=== PATIENT | female | born 1960 | race Asian ===

== ENCOUNTER 2017-08-28 03:04 | Inpatient (IN) | payer OTHER, MEDICARE ==
[~2017-08-28] VITALS: Ht 160 cm; Wt 63.1 kg
[2017-08-28] VITALS (8 sets, daily range): BP systolic 122–188; BP diastolic 70–90
[2017-08-28 03:13] LABS: GLUCOSE COMMENT 1 Doctor Notified; GLUCOSE,POINT OF CARE 290 MG/DL (70-110)
[2017-08-28 03:25] LABS: HEMATOCRIT 32.1 % (36-46); MEAN CORPUSCULAR HEMOGLOBIN 28.4 pg (26.0-34.0); MEAN CORPUSCULAR HGB CONC 31.2 G/dL (31.0-37.0); MEAN CORPUSCULAR VOLUME 91 fL (80-100); PLATELET COUNT (AUTO) 131 K/uL (150-450); RED BLOOD CELL COUNT(AUTO) 3.53 MIL/uL (4.00-5.20); RED CELL DISTRIBUTION WIDTH 17.9 % (11.5-14.5); WHITE BLOOD COUNT (AUTO) 5.4 K/uL (4.5-11.0)
[2017-08-28 03:29] LABS: PROTHROMBIN TIME 21.4 SEC (9.4-11.6)
[2017-08-28 03:32] LABS: ANION GAP 16 mmol/L (8-16); CALCIUM, TOTAL 8.2 mg/dL (8.8-10.5); CARBON DIOXIDE 25 mmol/L (22-29); CHLORIDE 99 mmol/L (98-107); GLOMERULAR FILTR. RATE CALC 8 mL/min (>60); POTASSIUM 4.3 mmol/L (3.5-5.1); SODIUM SERUM 140 mmol/L (136-145); UREA NITROGEN, BLOOD 39 mg/dL (7-18)
[2017-08-28] MEDS: PROPOFOL 1000 MG/ISO-OSM 100 ML IV PRN ×4 (03:34→19:50)
[2017-08-28 03:38] LABS: ALANINE AMINOTRANSFERASE 16 U/L (12-78); ALBUMIN 2.5 g/dL (3.4-5.0); ASPARTATE AMINOTRANSFERASE 29 U/L (15-37); CREATINE KINASE, TOTAL 44 U/L (26-192); TOTAL PROTEIN, SERUM 6.9 g/dL (6.4-8.2)
[2017-08-28] MEDS ORDERED: ACETAMINOPHEN 325 MG TABLET PO PRN ×2 (03:45→08:00)
[2017-08-28] MEDS ORDERED: ONDANSETRON HCL 4 MG/2 ML VIAL IVP PRN (03:45)
[2017-08-28] MEDS ORDERED: 0.9% SODIUM CHLORIDE 10 ML SYRINGE IVP PRN (03:45)
[2017-08-28 03:55] LABS: EOSINOPHILS % (MANUAL) 1 % (1-6); LYMPHOCYTES % (MANUAL) 82 % (22-44); TOTAL CELLS COUNTED 100
[2017-08-28] MEDS ORDERED: NIFE60TA71 PO (03:59)
[2017-08-28] MEDS ORDERED: FURO80 PO (03:59)
[2017-08-28] MEDS ORDERED: FERR-89 PO (03:59)
[2017-08-28] MEDS ORDERED: CLON1PAT13 TD (03:59)
[2017-08-28] MEDS ORDERED: ACET1TAB12 PO (03:59)
[2017-08-28] MEDS ORDERED: WARF5 PO (03:59)
[2017-08-28] MEDS ORDERED: SEVEC800 PO (03:59)
[2017-08-28] MEDS ORDERED: ERGO500014 PO (03:59)
[2017-08-28] MEDS ORDERED: CINA30 PO (03:59)
[2017-08-28] MEDS ORDERED: INSNPH SQ (03:59)
[2017-08-28] MEDS ORDERED: ALBU8.5H8 IH (03:59)
[2017-08-28] MEDS ORDERED: PANT40TA25 PO (03:59)
[2017-08-28] MEDS ORDERED: METO50 PO (03:59)
[2017-08-28] MEDS ORDERED: CLON-570 PO (03:59)
[2017-08-28] MEDS ORDERED: ATOR40TA28 PO (03:59)
[2017-08-28] MEDS ORDERED: MOME13HF2 IH (03:59)
[2017-08-28] MEDS ORDERED: AMLO-512 PO (03:59)
[2017-08-28] MEDS ORDERED: TRIA15CR45 TP (03:59)
[2017-08-28] MEDS ORDERED: LISI-662 PO (03:59)
[2017-08-28] MEDS ORDERED: HYDR2 PO (03:59)
[2017-08-28] MEDS ORDERED: SODIUM BICARBONATE [ADULT] 8.4% 50 MEQ/50 ML SYRINGE IVP ONE ×2 (04:00→17:22)
[2017-08-28] MEDS ORDERED: CALCIUM GLUCONATE 100 MG/ML 10 ML IVP ONE (04:00)
[2017-08-28 05:17] LABS: ABG A-A DIFF O2 113.5 mmHg (10-20.0); ABG BASE EXCESS 0.9 mmol/L (-2.0-3.0); ABG HCO3 25.4 mmol/L (22.0-26.0); ABG OXYHEMOGLOBIN 95.9 % (94.0-100.0); ABG PCO2 38 mmHg (35-45); ABG PH 7.438 (7.35-7.450); TEMPERATURE, FAHRENHEIT, BG 98.4 FAHREN (96.0-98.6)
[2017-08-28 05:18] LABS: ALLEN TEST, BLOOD GAS POSITIVE
[2017-08-28] MEDS ORDERED: SODIUM CHLORIDE 0.9% 250 ML IV ONE (06:19)
[2017-08-28] MEDS ORDERED: BISACODYL 10 MG RECTAL RECTAL SUPPOSITORY PR PRN (08:00)
[2017-08-28] MEDS ORDERED: *CLINICAL-WARFARIN SODIUM DOSING CLINICAL ONE ×2 (08:00)
[2017-08-28] MEDS ORDERED: DEXTROSE 50%-WATER 25 GM/50 ML SYRINGE IVP PRN (08:00)
[2017-08-28] MEDS ORDERED: INSULIN REGULAR, HUMAN 100 UNITS/ML SQ PRN (08:00)
[2017-08-28] MEDS ORDERED: HEPARIN SODIUM,PORCINE 5,000 UNITS/ML VIAL SQ SCH (09:00)
[2017-08-28] MEDS: DOCUSATE SODIUM 100 MG CAPSULE PO SCH ×2 (09:00→19:50)
[2017-08-28 09:36] LABS: CALCIUM, TOTAL 7.8 mg/dL (8.8-10.5); CREATININE 5.91 mg/dL (0.60-1.30); POTASSIUM 3.6 mmol/L (3.5-5.1)
[2017-08-28] MEDS: PANTOPRAZOLE SODIUM 40 MG DR TABLET PO SCH (10:11)
[2017-08-28] MEDS ORDERED: CloNIDine HCL 0.1 MG TABLET PO PRN (11:00)
[2017-08-28] MEDS: AmLODIPine BESYLATE 10 MG TABLET PO SCH (12:13)
[2017-08-28] MEDS: HydrALAZINE HCL 20 MG/ML VIAL IVP PRN (14:40)
[2017-08-28] MEDS ORDERED: CALCIUM CHLORIDE 100 MG/ML 10 ML SYRINGE IVP ONE (17:22)
[2017-08-28] MEDS ORDERED: CALCIUM CHLORIDE 100 MG/ML 10 ML VIAL IVP ONE (17:22)
[2017-08-28] MEDS: WARFARIN SODIUM 5 MG TABLET PO SCH (17:47)
[2017-08-28] MEDS ORDERED: IOVERSOL 350 MG/ML 100 ML VIAL ONE (21:20)
[2017-08-29] VITALS: BP 154/73
[2017-08-29] MEDS: PROPOFOL 1000 MG/ISO-OSM 100 ML IV PRN ×3 (02:00→18:38)
[2017-08-29 04:00] VITALS: BP 185/88
[2017-08-29] MEDS: HydrALAZINE HCL 20 MG/ML VIAL IVP PRN ×3 (04:40→18:38)
[2017-08-29 05:32] LABS: BASOPHILS % (AUTO) 0.3 % (0.0-2.0); EOSINOPHILS % (AUTO) 4.5 % (1.0-6.0); HEMATOCRIT 28.8 % (36-46); HEMOGLOBIN 9.7 g/dL (12.0-16.0); LYMPHOCYTES % (AUTO) 16.6 % (22.0-44.0); MEAN CORPUSCULAR HEMOGLOBIN 29.1 pg (26.0-34.0); MEAN CORPUSCULAR HGB CONC 33.8 G/dL (31.0-37.0); MEAN CORPUSCULAR VOLUME 86 fL (80-100); MONOCYTES # (AUTO) 0.4 K/uL (0.1-1.0); MONOCYTES % (AUTO) 7.4 % (2.0-9.0); NEUTROPHILS # (AUTO) 4.2 K/uL (1.8-7.7); NEUTROPHILS % (AUTO) 71.2 % (40.0-70.0); PLATELET COUNT (AUTO) 187 K/uL (150-450); RED BLOOD CELL COUNT(AUTO) 3.35 MIL/uL (4.00-5.20); RED CELL DISTRIBUTION WIDTH 18.2 % (11.5-14.5); WHITE BLOOD COUNT (AUTO) 5.9 K/uL (4.5-11.0)
[2017-08-29 05:43] LABS: INR 2.2 (0.9-1.1); PROTHROMBIN TIME 23.5 SEC (9.4-11.6)
[2017-08-29 06:37] LABS: ALBUMIN 2.7 g/dL (3.4-5.0); CALCIUM, TOTAL 8.6 mg/dL (8.8-10.5); CREATININE 6.93 mg/dL (0.60-1.30); MAGNESIUM 2.4 mg/dL (1.80-2.40); PHOSPHORUS 2.6 mg/dL (2.5-4.9); POTASSIUM 3.6 mmol/L (3.5-5.1); THYROID STIMULATING HORMONE 0.72 uIU/mL (0.36-3.74); TOTAL PROTEIN, SERUM 6.9 g/dL (6.4-8.2)
[2017-08-29 06:40] LABS: RBC MORPHOLOGY COMMENT ABNORMAL RBC MORPH
[2017-08-29 08:00] VITALS: BP 164/83
[2017-08-29] MEDS: DOCUSATE SODIUM 100 MG CAPSULE PO SCH (08:20)
[2017-08-29] MEDS: AmLODIPine BESYLATE 10 MG TABLET PO SCH (08:21)
[2017-08-29] MEDS: PANTOPRAZOLE SODIUM 40 MG DR TABLET PO SCH (08:21)
[2017-08-29 12:00] VITALS: BP 125/70
[2017-08-29 14:37] LABS: GLUCOSE,POINT OF CARE 72 MG/DL (70-110)
[2017-08-29 14:37] LABS: GLUCOSE,POINT OF CARE 114 MG/DL (70-110)
[2017-08-29 14:37] LABS: GLUCOSE,POINT OF CARE 116 MG/DL (70-110)
[2017-08-29 14:37] LABS: GLUCOSE,POINT OF CARE 80 MG/DL (70-110)
[2017-08-29 14:37] LABS: GLUCOSE,POINT OF CARE 105 MG/DL (70-110)
[2017-08-29 16:00] VITALS: BP 174/82
[2017-08-29] MEDS: WARFARIN SODIUM 5 MG TABLET PO SCH (17:21)
[2017-08-29] MEDS ORDERED: ATORVASTATIN CALCIUM 20 MG TABLET PO SCH (21:00)
[2017-08-30 12:43] LABS: GLUCOSE,POINT OF CARE 96 MG/DL (70-110)
== END 2017-08-29 19:55 | disposition short-term general hospital (02) | DRG 208 ==
LOC: EMS 03:07 → ICU 03:54
PROVIDERS: ADMIT Internal Medicine; ATTEND Internal Medicine
PROC: 5A1945Z Respiratory Ventilation, 24-96 Consecutive Hours (ICD-10-PCS; principal; 2017-08-28)
PROC: 0BH17EZ Insertion of Endotracheal Airway into Trachea, Via Natural or Artificial Opening (ICD-10-PCS; 2017-08-28)
PROC: 5A1D70Z Performance of Urinary Filtration, Intermittent, Less than 6 Hours Per Day (ICD-10-PCS; 2017-08-29)
DX: J96.00 Acute respiratory failure, unspecified whether with hypoxia or hypercapnia (principal); I46.9 Cardiac arrest, cause unspecified; Z99.11 Dependence on respirator [ventilator] status; I13.2 Hypertensive heart and chronic kidney disease with heart failure and with stage 5 chronic kidney disease, or end stage renal disease; T86.12 Kidney transplant failure; I27.20 Pulmonary hypertension, unspecified; N18.6 End stage renal disease; I50.30 Unspecified diastolic (congestive) heart failure; E11.22 Type 2 diabetes mellitus with diabetic chronic kidney disease; E11.65 Type 2 diabetes mellitus with hyperglycemia; E78.5 Hyperlipidemia, unspecified; I25.10 Atherosclerotic heart disease of native coronary artery without angina pectoris; M10.9 Gout, unspecified; J39.2 Other diseases of pharynx; R00.1 Bradycardia, unspecified; J44.9 Chronic obstructive pulmonary disease, unspecified; Z79.4 Long term (current) use of insulin; Z79.899 Other long term (current) drug therapy; Z99.2 Dependence on renal dialysis; Z88.0 Allergy status to penicillin
CPT/HCPCS: 31500; 51702; 70450; 82805; 82962; 83735; 84100; 84443; 87070; 87081; 87205; 87324; 87340; 87449; 90935; 93005; 93306; 94002; 94003; 96374; 96375; 99291; J0360; J2704; J3490; J7050